=== PATIENT | male | born 1950 | race Caucasian/White ===

== ENCOUNTER 2016-07-30 14:51 | Inpatient (IN) ==
--- NOTE | 2016-07-30 15:27 | Emergency Department Note ---
Disposition Clinical Impression: Angina at rest Chest pain Qualifiers: Chest pain type: unspecified Qualified Code(s): R07.9 - Chest pain, unspecified Disposition: Admitted As Inpatient Condition: Good Chest Pain HPI - General Chief Complaint: ED Shortness of Breath/Dyspnea Stated Complaint: CP/SOB` Time Seen by Provider: 07/30/16 14:56 Source: patient, EMS Limitations: no limitations Vital Signs Reviewed: Yes Nursing Notes Reviewed: Yes - History of Present Illness HPI Narrative: 66-year-old male presents to the ED with the chief complaint of intermittent chest tightness and dyspnea this been worsening over the last 2-3 weeks. He has a history of coronary disease and had an ME in 1997 with a stent placement. In 1998 he had reocclusion and had angioplasty. In 2012 he went to the [facility] where he had 2 stents placed. He states he has significant decrease in energy level and cannot perform his daily activities. He states this is exactly how he felt last time in 2012 when he had 2 additional stents placed. He has a history of high cholesterol and type 2 diabetes. He describes chest tightness that is not radiating. He denies any lower extremity swelling or calf pain. Denies any lightheadedness or syncope. Denies any recent illness. He was seen at the [facility] today with a perform lab work, chest x- ray and sent him here with concerning chest pain. Severity scale (1-10): 0 - Related Data Allergies Allergy/AdvReac Type Severity Reaction Status Date / Time glyburide AdvReac Nausea Verified 07/30/16 14:54 simvastatin [From Zocor] AdvReac Nausea Verified 07/30/16 14:54 All systems ED: reviewed and negative except as stated. Constitutional: Denies: fever Cardiovascular: Reports: chest pain, dyspnea on exertion Respiratory: Denies: cough Gastrointestinal: Denies: abdominal pain, nausea, vomiting Musculoskeletal: Denies: back pain Neurological: Denies: headache, weakness, numbness Endocrine: Reports: fatigue Chest Pain PMH - Past Medical History Medical history: Reports: arthritis, coronary artery disease, diabetes, GERD, hyperlipidemia Psychiatric history: Reports: anxiety, depression, PTSD - Social History Smoking Status: Former smoker Alcohol use: Reports: none Drug use: Reports: none Physical Exam General: Appears well, alert and oriented x 3 Cardiovascular: Regular rate and rhythm. S1, S2. No murmurs, rubs or gallops. Respiratory: Breath sounds clear bilaterally. No wheezing, rales or rhonchi. No resp distress Abdomen: Soft, nontender. No guarding, rebound or rigidity. Eyes: Conjunctiva clear HENT: NNo oral mucosal lesions. Moist mucous membranes Neuro: Alert and oriented 3, no motor sensory deficits. Musculoskeletal: No joint tenderness or swelling. No calf swelling, asymmetry or signs of DVT Skin: No lesions. No diaphoresis. Normal turgor. Normal color Psych: Appropriate - General Limitations: no limitations General appearance: alert Course Course Narrative[facility] 4.8, hemoglobin 13.4, platelets 107. Sodium 139, potassium 3.9, right 105, CO2 25, glucose 141, BUN 8, creatinine 0.93, no elevation in liver enzymes, troponin 0, BNP 67. Chest x-ray shows no evidence of acute cardiopulmonary disease My concern at this time is a patient has a very concerning story consistent with his previous events. His chest pain has worsened significantly over the last 2 weeks causing intermittent chest tightness at rest. Concern for unstable angina. I discussed with the on-call hospitalist, Dr. Adkins who except for admission, no further orders at this time Vital Signs Temperature 98.5 F 07/30/16 14:55 Pulse Rate 57 07/30/16 14:55 Respiratory Rate 16 07/30/16 14:55 Blood Pressure 138/77 07/30/16 14:55 O2 Sat by Pulse Oximetry 99 07/30/16 14:55 Temperature 98.5 F 07/30/16 14:55 Pulse Rate 57 07/30/16 14:55 Respiratory Rate 16 07/30/16 16:11 Blood Pressure 128/72 07/30/16 16:11 O2 Sat by Pulse Oximetry 99 07/30/16 14:55 Oxygen Delivery Oxygen Delivery Room Air Chest Pain - Lab Data Lab results narrative: EKG shows a sinus rhythm with a rate of 55 beats a minute. No ST elevation or depression. T-wave flattening in lead 3. This is unchanged from previous on . Heart Score - Score History: Moderately Suspicious EKG: Normal Age: Greater than 65 Risk Factors: Equal/Greater than 3 risk factor or history of atherosclerotic disease Troponin: Less than normal limit HEART Score Total: 5 Attestation Statement - Attestation Attestation: I examined this patient and my medical decision-making was reviewed with the LAND COMMISSIONER/PA/Advanced Practice Nurse/Resident Physician. I agree with the documented findings, disposition and treatment plan as described except to the extent set forth below. 66-year-old male presents ED because of chest discomfort. He is having progression of increasing fatigue with exertional provocation of dyspnea and chest discomfort. Symptoms mimic what he experienced in 2012 when he required placement of 2 coronary stents at the [facility]. His coronary disease dates back to 1997 when he had his original angioplasties. Denies diaphoresis. No nausea vomiting. No focal weakness. No fevers, chills or rigors. He presented to the [facility] where he had normal lab workup including normal troponin. He was sent to the ED here for further evaluation. Well-appearing male in no apparent physiologic distress. Oropharynx clear, nares membranes moist. Neck is supple without JVD. No carotid bruits appreciated. Chest symmetrically diminished bilaterally. Cardiac exam regular without rubs or gallops. Chest wall is nontender. Abdomen soft and nontender. Extremities warm and dry without asymmetric edema. Case was discussed with on-call hospitalist who will admit him for further cardiac workup.
--- NOTE | 2016-07-30 16:28 | Internal Med History&Physical ---
Date of Encounter: 07/30/16 Time of Encounter: 16:24 Assessment and Plan (1) Chest pain Current visit: Yes Status: Acute Patient with typical chest pain, possibly stable angina , and possible chest pain equivalent of dyspnea on exertion, and chest tightness Initial work up unremarkable-CXR/ekg/Initial trops unremarkable Significant cardiac history Not following with Manager Pet, on ASA only at home Continue ASA Start Lipitor, hold BB for now for stress test Trend troponins X3, Obtain ECHO, Stress test a.m if troponins negative Check A1C lipid profile Will consult cardiology prn Qualifiers: Chest pain type: unspecified Qualified Code(s): R07.9 - Chest pain, unspecified (2) Diabetes mellitus Current visit: Yes Status: Chronic A1C unknown Patient states well controlled Check A1C FS ACHS ADA diet Sliding scale insulin for now, patient is insulin naive Qualifiers: Diabetes mellitus type: type 2 Diabetes mellitus complication status: without complication 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 NO bleeding, monitor PLT (4) HLD (hyperlipidemia) Current visit: Yes Status: Chronic On Niacin at home, Start Lipitor 40mg HS Check Lipid panel and de-escalate prn Qualifiers: Hyperlipidemia type: unspecified Qualified Code(s): E78.5 - Hyperlipidemia , unspecified (5) CAD (coronary artery disease) Current visit: Yes Status: Chronic Patient is not on any medications at home except aspirin, continue same Qualifiers: Coronary Disease-Associated Artery/Lesion type: [place] artery [place] vs. transplanted heart: [place] heart Associated angina: with other forms of angina Qualified Code(s): I25.118 - Atherosclerotic heart disease of [place] coronary artery with other forms of angina pectoris Internal Medicine - H&P: HPI Chief complaint: Chest tightness Admitted From: Intrahospital Transfer Plans for Post Hospital Care: Home History of present illness: Mr. Eric is a 66 year old male with PMH of CAD, HLD, DM, GERD, BPH, ED on [facility], patient presented as a transfer from the [place] with complains of chest tightness Patient reports intermittent chest tightness for the past 3 weeks with worsening in the past 2 days. 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 He reports he started having sub -sternal dull chest pain , ~4/10, intermittent with no known aggravating and relieving factors for the past 2 days. Pain occasionally radiating to L arm, and lasts a few seconds per episode. No active chest pain at time of review. Chest pain is unrelated to meals. He reports feeling light headed , denies dizziness, diaphoresis, nausea, and vomiting, no syncope, no orthopnea, no leg swelling He has a history of coronary disease with HI in 1997 with a stent placement. In 1998 he had re-occlusion and had angioplasty. In 2012 agian, he hasd HI with SEGUNDO X2. He has not been on any "hear medication for years", he does not currently see a credit cashier. Patient thinks this is the same way he felt during last episode of NSTEMI He presented to the [facility] where he was worked up and referred here for further work up and management. He received SL NTG and ASA in [place], his BP has been stable (Patient is on Viagra) He is a non-smoker Past Med Surg Social Fam HX - Past Medical History Medical history: arthritis, coronary artery disease, diabetes, GERD, hyperlipidemia Psychiatric history: anxiety, depression, PTSD - Social History Smoking Status: Former smoker Smokeless Tobacco Status: No Alcohol use: none Drug use: none Internal Medicine - H&P: Meds Aspirin Enteric Coated [Aspirin EC] 81 mg PO DAILY 07/30/16 [History] Citalopram Hydrobromide [Celexa] 40 mg PO DAILY 07/30/16 [History] Finasteride [Proscar] 5 mg PO DAILY 07/30/16 [History] Metformin HCl [Glucophage] 1,000 mg PO BID 07/30/16 [History] Niacin [Slo-Niacin] 1,500 mg PO HS 07/30/16 [History] Pantoprazole Sodium [Protonix] 40 mg PO DAILY 07/30/16 [History] Saxagliptin HCl [Onglyza] 5 mg PO DAILY 07/30/16 [History] Sildenafil Citrate [Viagra] 100 mg PO AD PRN 07/30/16 [History] Terazosin HCl 2 mg PO HS 07/30/16 [History] Allergies glyburide Adverse Reaction (Verified 07/30/16 14:54) Nausea simvastatin [From Zocor] Adverse Reaction (Verified 07/30/16 14:54) Nausea All Systems PM: A 10-system review of systems was performed and is negative for pertinent findings except as documented above in the HPI. - Constitutional Constitutional: no chills, no fever(s), no night sweats - EENT Eyes: no change in vision, no discharge, no pain, no photophobia Ears: no ear discharge, no ear pain, no tinnitus Nose, mouth and throat: no dysphagia, no nasal discharge, no neck pain, no sore throat - Cardiovascular Cardiovascular ROS IM: as per HPI - Respiratory Respiratory: as per HPI - Gastrointestinal Gastrointestinal: as per HPI - Musculoskeletal Musculoskeletal ROS IM: as per HPI - Integumentary Integumentary IM: no rash, no unusual bruising - Neurological Neurological ROS: no confusion, no convulsions, no focal weakness, no numbness, no tingling, no tremor(s) - Hematologic/Lymphatic Hematologic/Lymphatic: no easy bruising - Constitutional Vitals: Temp Pulse Resp BP Pulse Ox 98.5 F 57 16 128/72 99 07/30/16 14:55 07/30/16 14:55 07/30/16 16:11 07/30/16 16:11 07/30/16 14:55 General: VSS. Laying flat in bed in no obvious distress, speaks full sentences, appears well, alert and oriented x 3 Neuro: Alert, oriented, moves all extremities, no speech deficits, no facial paralysis HEENT: BEKA, sclera anicteric, conjunctiva is not pale Chest: CTAB, no added sound, no chest wall tenderness Heart: S1, S2 only, no m/g/r, no JVD Abdomen: Soft, non-tender. No palpably enlarged organs, BS present in all quadrants Extremities: No edema, well perfused, no clubbing Integument: Intact, no rash on chest wall Internal Med - H&P Results - Labs Labs: Paperwork from [place] reviewed WBC 4.8, hemoglobin 13.4, platelets 107-chronic, since 2016, baseline PLT about 107. Chem:. Sodium 139, potassium 3.9, right 105, CO2 25, glucose 141, BUN 8, creatinine 0.93, LFT WNL Troponin 0.00 BNP 67 CXR: No infiltrates, no cardiomegaly, no acute processed EKG at [facility]: NSR, no ST segment changes EKG here: Sinus bradycardia, VR 55, no St elevation or depression, no T wave inversion or flattening
[2016-07-30] MEDS ORDERED: *HR* HYDROcodone/Acet 5/325 mg TABLET PO PRN (16:30)
[2016-07-30] MEDS ORDERED: Naloxone 0.4 MG/ML INJ IVP PRN (16:30)
[2016-07-30] MEDS ORDERED: *HR* Morphine 2 MG/ML SYRINGE IVP PRN (16:30)
[2016-07-30] MEDS ORDERED: Ondansetron 4 MG/2 ML VIAL IVP PRN (16:30)
[2016-07-30] MEDS ORDERED: Acetaminophen 325 MG TABLET PO PRN (16:30)
[2016-07-30] MEDS ORDERED: Nitroglycerin 0.4 MG TAB.SUBL SL PRN (16:35)
[2016-07-30] MEDS ORDERED: *HR* Dextrose 50 % in Water (Syg) 50 ML SYRINGE IVP PRN (16:36)
[2016-07-30] MEDS ORDERED: D5% in Water 1,000 ML IVC PRN (16:36)
[2016-07-30] MEDS ORDERED: Dextrose Gel 15 GM PO PRN ×2 (16:36)
[2016-07-30] MEDS ORDERED: Insulin LISPRO 300 UNITS/3 ML VIAL SQ SCH (21:00)
[2016-07-31] MEDS: *HR* Heparin 5,000 UNIT/ML VIAL SQ SCH ×3 (00:04→16:40)
[2016-07-31 00:47] LABS: Basophils % 0.7 %; Eosinophils # 0.1 K/mcL (0.0-0.6); Hematocrit 39.2 % (37.5-50.1); Hemoglobin 13.3 g/dL (12.9-16.9); Immature Granulocytes % 0.4 % (0-4); Lymphocytes % 36.2 %; Mean Corpuscular HGB Conc 33.9 g/dL (31.6-35.5); Mean Corpuscular Hemoglobin 29.8 pg (28.0-33.3); Mean Corpuscular Volume 87.7 fL (83.0-100.0); Mean Platelet Volume 10.4 fL (9.4-12.4); Monocytes # 0.6 K/mcL (0.0-1.3); Monocytes % 10.2 %; Neutrophils # 2.8 K/mcL (1.6-8.9); Platelet Count 109 K/mcL (140-400); Red Blood Count 4.47 M/mcL (4.19-5.50); Red Cell Distribution Width 12.2 % (11.5-14.5); Segmented Neutrophils % 50.5 %
[2016-07-31 01:01] LABS: BUN/Creatinine Ratio 11 (6-26); Blood Urea Nitrogen 10 mg/dL (8-26); Carbon Dioxide 27 mEq/L (19-29); Chloride 105 mEq/L (98-109); Chol/HDL Ratio 4.6 (0-4.9); Cholesterol 193 mg/dL (< 200); Glucose 121 mg/dL (70-99); HDL Cholesterol 42 mg/dL (40-59); Hemoglobin A1C 7.7 %; LDL Cholesterol,Calculated 116 mg/dL (0-99); Osmolality,Calculated 286 (280-300); Potassium 3.6 mEq/L (3.5-4.5); Sodium 138 mEq/L (136-145); Triglycerides 175 mg/dL (< 150); eGFR For African Americans > 60 (> 60); eGFR For Non-African Americans > 60 (> 60)
[2016-07-31] MEDS ORDERED: Regadenoson 0.4 MG/5 ML SYRINGE IVP ONE (07:27)
[2016-07-31] MEDS ORDERED: Aspirin Enteric Coated 81 MG Tablet PO SCH (09:00)
[2016-07-31] MEDS ORDERED: Finasteride 5 MG TABLET PO SCH (09:00)
[2016-07-31] MEDS: Insulin LISPRO 300 UNITS/3 ML VIAL SQ SCH ×3 (09:56→16:40)
--- NOTE | 2016-07-31 11:53 | Nuclear Medicine Stress Report ---
Low Level Regadenoson Name: Sarbjit Eric Date of Study: 07/31/2016 Date: 1950 Ht: 70.0 in Medical Record#: [id number] Age: 66 Wt: 197.0 lb Gender: Male Order #: [id number] Location: [facility] Room: [facility] Supervising Provider: Joao Hartman CNP Reading Physician: Steve Darling MD, [facility] Ordering Physician: Olga Basurto CNP Primary Care Physician: [facility] Stress Technologist: Chetna Bautista RRT,FT Pasting Inspector: Rao Figueroa Indications: Coronary Artery Disease, Chest Pain Impression: Perfusion imaging was probably abnormal for ischemia - small area, mildly intense reversible defect in the mid-apical inferior wall (SDS 3). This was complicated by subdiaphragmatic attenuation. Pharmacologic ECG was non diagnostic for ischemia. Patient had no chest pain with stress. Normal hemodynamic response. No arrhythmias noted with stress. Gated EF = 62%. The LV is not dilated. There is no evidence of TID. No high risk findings on this stress test Ordering team and eco industrial development consultant notified of abnormal results History: Diabetes Hypercholesteremia Prior PCI Stress Test Summary: Stress Test Type: Low level pharmacologic Regadenoson 0.4mg/5ml given IV Baseline Information: Initial Heart Rate: 85 Blood Pressure: 104/62 Stress Information: Stress Time: 4 min 00 sec Test Terminated Due to (primary): As per protocol Maximum Blood Pressure: 122/52 Maximum Heart Rate: 133 Percent Maximum Heart Rate Achieved: 86 Double Product: 50902 METS Reached: 2.1 Symptoms: Shortness of breath Nuclear Summary: SPECT myocardial perfusion imaging using Tc99m Sestamibi given intravenously was performed at rest and following cardiac stress testing. The resting images were obtained following initial dose of 11.5 mCi. Following stress an additional dose of 35.6 mCi was given at peak exercise or 30 seconds post regadenoson infusion. Medication Given: Time Medication Dose Units Route Findings: Stress Note * Resting ECG demonstrated normal sinus rhythm. * No baseline arrhythmias were noted. * Pharmacologic stress ECG is non diagnostic for ischemia due to failure to reach target heartrate. Hemodynamic responses * Normal hemodynamic responses to low level exercise plus pharmacologic stress. Study Quality * Study quality was fair. Gated EF % * Gated EF = 62%. Left Ventricle * The left ventricle is not dilated. TID * No evidence of transient ischemic dilatation. NORMALS * Normal wall motion. * All other segmental perfusion normal in stress. * All other segmental perfusion normal in rest. Inferior Perfusion Rest * The mid inferior segment shows a mild reduction in perfusion. Inferior Perfusion Stress * The mid inferior segment shows a moderate reduction in perfusion. Updated by Steve Darling MD, FACC on 07/31/2016 11:45:16 AM electronically signed on 07/31/2016 11:49:50 AM with status of Final
--- NOTE | 2016-07-31 12:57 | Cardiology Consult Note ---
Date of Encounter: 07/31/16 Time of Encounter: 12:30 Assessment and Plan (1) Abnormal stress test Current Visit: Yes Status: Acute Presented to the [facility] from OR with typical/atypical chest pain symptoms. Troponin negative x3 (negative at OR). No ischemic ECG changes. Denies recurrent chest pain since admission. Low risk finding on nuclear stress test today--small area, mild intensity reversible defect to the mid-apical inferior wall, gated EF=62% TTE: LVEF 60-65%, normal wall motion. Cardiac medications include asa and niacin. Recommend trial of medical therapy-- will start betablocker and long-acting nitrate. He was instructed to stop sildenafil--he states he has not taken for "years" Close follow-up with [facility] in the outpatient setting to assess symptoms. Patient is agreeable. (2) CAD (coronary artery disease) Current Visit: Yes Status: Chronic Hx of angioplasty in the late . Reported most recent PCI September 2012 to RCA. Plan as above. Continue asa, will start betablocker. Intolerant to statin d/t myalgia. Qualifiers: Coronary Disease-Associated Artery/Lesion type: [place] artery [place] vs. transplanted heart: [place] heart Associated angina: with stable angina Qualified Code(s): I25.118 - Atherosclerotic heart disease of [place] coronary artery with other forms of angina pectoris (3) Thrombocytopenia Current Visit: Yes Status: Chronic Reports as chronic for the past several years. PLT stable. Denies abnormal or unusual bleeding. Discussion w patient/family: The assessment and plan as outlined above was discussed with the patient and/or family members who expressed understanding and agreement. All questions were answered. Thank you for involving us in the care of your patient. Please call with any questions. The patient will be discussed and reviewed with Dr. Rice; changes to be made accordingly. History of Present Illness Consult date: 07/31/16 Requesting physician: Max Prince Consult reason: Abnormal stress test Chief complaint: Chest pain History of present illness: Mr. Eric is a 66 year old male with PMH significant for CAD s/p PCI, GERD, OA, HLD, DMII, and chronic thrombocytopenia who presented to the ED with intermittent chest discomfort that started a few weeks ago. Symptoms occur both at rest and exertion. Associated features include fatigue and shortness of breath. Discomfort typically resolves without intervention. [facility] ECG was without acute ischemic changes. Reports angioplasty in 1997 and 1998; reports PCI at [facility] in 2013. Cath report reviewed 10/21/12: LMCA: no significant CAD LAD: p30% stenosis LCx: luminal irregularities RCA: patent stent with 40% ISR; RPL 100% functional [employer]KE [employer] with left to right collateral appears from septal branches of the LAD Past Med Surg Social Fam HX - Past Medical History Attestation: Yes The following information was validated with the patient. Source: patient, old records reviewed Medical history: arthritis, coronary artery disease, diabetes, GERD, hyperlipidemia, other (chronic thrombocytopenia) Psychiatric history: anxiety, depression, PTSD - Past Surgical History Surgical History: angioplasty/stent - Social History Smoking Status: Former smoker Smokeless Tobacco Status: No Alcohol use: none Drug use: none - Family History Mother Living Status: Hx Family Endocrine Disorder: Yes (DM) Hx Family Neuromuscular Disorders: Yes Father Living Status: Hx Family Cardiac Disorders: Yes (HLD, HTN) Hx Family Neurologic Disorders: Yes (aneurysm) Medications and Allergies Aspirin Enteric Coated [Aspirin EC] 81 mg PO DAILY 07/30/16 [History] Citalopram Hydrobromide [Celexa] 40 mg PO DAILY 07/30/16 [History] Finasteride [Proscar] 5 mg PO DAILY 07/30/16 [History] Metformin HCl [Glucophage] 1,000 mg PO BID 07/30/16 [History] Niacin [Slo-Niacin] 1,500 mg PO HS 07/30/16 [History] Pantoprazole Sodium [Protonix] 40 mg PO DAILY 07/30/16 [History] Saxagliptin HCl [Onglyza] 5 mg PO DAILY 07/30/16 [History] Sildenafil Citrate [Viagra] 100 mg PO AD PRN 07/30/16 [History] Tamsulosin [Flomax] 0.4 mg PO HS 07/30/16 [History] Allergies glyburide Adverse Reaction (Verified 07/30/16 14:54) Nausea simvastatin [From Zocor] Adverse Reaction (Verified 07/30/16 14:54) Nausea All Systems Review: A 10-system review of systems was performed and is negative for pertinent findings except as documented above in the HPI. - Cardiovascular Cardiovascular: as per HPI Physical Examination Vital Signs, Last 4 Hours Temp Pulse Resp BP Pulse Ox 07/31/16 11:34 98.0 F 66 17 118/72 98 07/31/16 09:55 97 07/31/16 09:53 98.1 F 57 16 106/64 97 General: Conversant, No Apparent Distress HEENT: Atraumatic, Normocephaly, Mucus Membranes Moist Neck: No JVD, Normal carotid pulses Cardiac: Reg Rate and Rhythm, Normal S1 and S2, No Murmur Lungs: Normal Breath Sounds, No Wheeze, Rales, Rhonchi Neuro: Alert and responsive, No focal deficits noted Abdomen: Soft, Non-Tender Skin: No rashes noted on visualized skin Musculoskeletal: No Chest Wall Tenderness Extremities: No Clubbing, No Cyanosis, No Edema, Normal Pulses Results 07/31/16 00:14 07/31/16 00:14 Lab Results 07/31/16 07/31/16 07/31/16 00:14 00:14 00:14 WBC 5.6 Hgb 13.3 Hct 39.2 Plt Count 109 L Sodium 138 Potassium 3.6 Chloride 105 Carbon Dioxide 27 BUN 10 Creatinine 0.88 Glucose 121 H Calcium 9.0 Troponin I 0.00 07/31/16 04:33 WBC Hgb Hct Plt Count Sodium Potassium Chloride Carbon Dioxide BUN Creatinine Glucose Calcium Troponin I 0.01 Active Medications Acetaminophen (Tylenol) 650 mg PO Q6HR PRN PRN Reason: Mild Pain (1-3) Stop: 01/29/17 16:31 Acetaminophen/Hydrocodone Bitart ([place] 5-325 Mg) 1 tab PO Q4HR PRN PRN Reason: Moderate Pain (4-6) Stop: 01/29/17 16:31 Aspirin (Aspirin Ec) 81 mg PO DAILY [facility] Stop: 01/30/17 09:01 Last Admin: 07/31/16 09:55 Dose: 81 mg Atorvastatin Calcium (Lipitor) 40 mg PO HS [facility] Stop: 01/29/17 21:01 Last Admin: 07/30/16 21:09 Dose: Not Given Citalopram Hydrobromide (Celexa) 40 mg PO DAILY [facility] Stop: 01/30/17 09:01 Last Admin: 07/31/16 09:55 Dose: 40 mg Dextrose/Water (Dextrose 50% (Syg)) 25 ml IVP AD PRN PRN Reason: Hypoglycemia Stop: 01/29/17 16:37 Finasteride (Proscar) 5 mg PO DAILY JANNIE PRN Reason: Protocol Stop: 01/30/17 09:01 Last Admin: 07/31/16 09:55 Dose: 5 mg Glucagon (Glucagen) 1 mg IM ONCE PRN PRN Reason: Hypoglycemia Stop: 01/29/17 16:37 Glucose (Gluctose) 15 gm PO ONCE PRN PRN Reason: Hypoglycemia Stop: 01/29/17 16:37 Glucose (Gluctose) 30 gm PO ONCE PRN PRN Reason: Hypoglycemia Stop: 01/29/17 16:37 Heparin Sodium (Porcine) (Heparin) 5,000 unit SQ Q8HR [facility] Stop: 01/30/17 00:01 Last Admin: 07/31/16 09:56 Dose: 5,000 unit Dextrose (Dextrose 5%) 1,000 mls @ 100 mls/hr IVC .Q10H PRN PRN Reason: HYPOGLYCEMIA Stop: 01/29/17 16:37 Insulin Human Lispro (Humalog) 0 units SQ HS [facility] PRN Reason: Protocol Stop: 01/29/17 21:01 Last Admin: 07/30/16 21:09 Dose: 3 units Insulin Human Lispro (Humalog) 0 units SQ TIDAC [facility] PRN Reason: Protocol Stop: 01/30/17 07:31 Last Admin: 07/31/16 12:22 Dose: Not Given Isosorbide Mononitrate (Imdur) 30 mg PO DAILY [facility] Stop: 01/30/17 13:01 Metoprolol Succinate (Toprol Xl) 12.5 mg PO DAILY [facility] Stop: 01/30/17 13:01 Morphine Sulfate (Morphine Sulfate) 2 mg IVP Q4HR PRN PRN Reason: Severe Pain (7-10) Stop: 01/29/17 16:31 Naloxone HCl (Narcan) 0.4 mg IVP Q2MIN PRN PRN Reason: Opioid Reversal Stop: 01/29/17 16:31 Nitroglycerin (Nitroglycerin) 0.4 mg SL Q5MIN PRN PRN Reason: Chest Pain Stop: 01/29/17 16:36 Omeprazole (Prilosec) 20 mg PO DAILY [facility] Stop: 01/30/17 09:01 Last Admin: 07/31/16 09:55 Dose: 20 mg Ondansetron HCl (Zofran) 4 mg IVP Q8HR PRN PRN Reason: Nausea And Vomiting Stop: 01/29/17 16:31 Tamsulosin HCl (Flomax) 0.4 mg PO HS JANNIE PRN Reason: Protocol Stop: 01/29/17 21:46 Last Admin: 07/30/16 22:01 Dose: 0.4 mg Terazosin HCl (Hytrin) 2 mg PO HS JANNIE Stop: 01/29/17 21:01 Last Admin: 07/30/16 21:10 Dose: Not Given - Imaging and Cardiology Stress Test: report reviewed Echo: report reviewed Other Results: 12 hour tele: avg HR=63 SR. No significant pause or event. - EKG Interpretation EKG results cardiology: personally reviewed Consult Discharge Plan - Plan [facility]errals: [facility] [Primary Care Provider] -
[2016-07-31] MEDS ORDERED: Metoprolol XL (24 HR) Succ 25 MG TAB.ER.24H PO SCH (13:00)
[2016-07-31] MEDS ORDERED: Isosorbide MONOnitrate (24 HR) 30 MG TAB.ER.24H PO SCH (13:00)
[2016-07-31 15:22] VITALS: BP 93/49
--- NOTE | 2016-07-31 16:00 | Discharge Summary ---
Date of Encounter: 07/31/16 Time of Encounter: 12:00 - Discharge Diagnosis (1) Chest pain Priority: Primary Status: Acute Qualifiers: Chest pain type: unspecified Qualified Code(s): R07.9 - Chest pain, unspecified (2) Diabetes mellitus Priority: Secondary Status: Chronic Qualifiers: Diabetes mellitus type: type 2 Diabetes mellitus complication status: without complication Diabetes mellitus half-way insulin use: without terminal make up operator use Qualified Code(s): E11.9 - Type 2 diabetes mellitus without complications (3) Thrombocytopenia Priority: Secondary Status: Chronic (4) HLD (hyperlipidemia) Priority: Secondary Status: Chronic Qualifiers: Hyperlipidemia type: unspecified Qualified Code(s): E78.5 - Hyperlipidemia , unspecified (5) CAD (coronary artery disease) Priority: Secondary Status: Chronic Qualifiers: Coronary Disease-Associated Artery/Lesion type: [place] artery [place] vs. transplanted heart: [place] heart Associated angina: with stable angina Qualified Code(s): I25.118 - Atherosclerotic heart disease of [place] coronary artery with other forms of angina pectoris - Discharge Medications Prescriptions: Isosorbide MONOnitrate (24 HR) [Imdur] 30 mg PO DAILY #30 tab.er.24h Metoprolol XL (24 HR) Succ [Toprol Xl] 12.5 mg PO DAILY #30 tab.er.24h Home Medications: Aspirin Enteric Coated [Aspirin EC] 81 mg PO DAILY 07/30/16 [History] Citalopram Hydrobromide [Celexa] 40 mg PO DAILY 07/30/16 [History] Finasteride [Proscar] 5 mg PO DAILY 07/30/16 [History] Metformin HCl [Glucophage] 1,000 mg PO BID 07/30/16 [History] Niacin [Slo-Niacin] 1,500 mg PO HS 07/30/16 [History] Pantoprazole Sodium [Protonix] 40 mg PO DAILY 07/30/16 [History] Saxagliptin HCl [Onglyza] 5 mg PO DAILY 07/30/16 [History] Tamsulosin [Flomax] 0.4 mg PO HS 07/30/16 [History] Isosorbide MONOnitrate (24 HR) [Imdur] 30 mg PO DAILY #30 tab.er.24h 07/31/16 [ Rx] Metoprolol XL (24 HR) Succ [Toprol Xl] 12.5 mg PO DAILY #30 tab.er.24h 07/31/16 [Rx] Allergies/Adverse Reactions: Allergies glyburide Adverse Reaction (Verified 07/30/16 14:54) Nausea simvastatin [From Zocor] Adverse Reaction (Verified 07/30/16 14:54) Nausea Procedures/tests Complete & Pending: Procedures Performed prior 72 hours Category Date Time Status ECG 12 lead ECG [ECG] Routine Y 07/30/16 14:55 Completed Date of admission: 07/30/16 17:30 [facility] care physician: [facility] Consults: 07/31/16 11:54 Consult to Cardiology [CONS] Stat Comment: Consulting Provider: Cardiology [facility] Reason for Consult: Significant cardiac history, chest pain, abnromal stress test, negative EKG/ECHO/Troponin X3, Kindly evaluate Call Completed: Yes Discharging clinician: Max Prince Anticipated date of discharge: 07/31/16 - Patient Status Disposition: Home, Self-Care Condition: Good Functional capacity at discharge: independent ambulation Overall status at discharge: patient is back to baseline - Discharge Instructions Instructions: Chest Pain (DC), Diabetes Mellitus Type 2 in Adults (DC) Follow Up With: [facility] [Primary Care Provider] - Additional Instructions: FOLLOW UP WITH CARDIOLOGY - Diet and Activity Activity: resume usual activities as tolerated Diet: low fat, low cholesterol, low salt diet Interval History: See below Hospital course: Mr. Eric is a 66 year old male with past medical history of coronary artery disease with stents, diabetes mellitus, hyperlipidemia, Patient presented with chest pain initial troponin negative 3, EKG unremarkable for ischemic changes, echocardiogram with normal ejection fraction and no wall motion abnormalities, stress test with mild perfusion defect inferior wall. Cardiology was consulted for evaluation due to abnormal stress test. Patient opted for medical therapy. Patient remained chest pain-free and hemodynamically stable throughout admission. Patient has been started on beta blockers and Imdur by cardiology. Patient was educated about his medications, verbalizes understanding. Patient takes Viagra for erectile dysfunction, however he states that he has not taken it in almost a year, and has been educated not to take it along with nitrates. Plan of care was discussed patient verbalizes understanding. Follow up with primary care provider and cardiology as outpatient. - Time Spent with Patient Total time spent providing and/or coordinating discharge services: Greater than 30 minutes - Constitutional Vitals: Temp Pulse Resp BP Pulse Ox 98.6 F 67 16 93/49 97 07/31/16 15:21 07/31/16 15:21 07/31/16 15:21 07/31/16 15:21 07/31/16 15:21 General appearance: Present: A&O X 3, pleasant, no acute distress - Head Head exam: Present: atraumatic, normocephalic - Eye Eye exam: Present: PERRL, conjuntiva pink, sclera anicteric Pupils: Present: PERRL - Neck Neck exam general surgery: Present: supple, trachea midline. Absent: lymphadenopathy - Respiratory Respiratory exam: Present: CTAB. Absent: accessory muscle use, rales, rhonchi, wheezes - Cardiovascular Cardiovascular exam: Present: RRR, +S1, +S2. Absent: diastolic murmur, gallop, rubs, systolic murmur - GI/Abdominal GI/Abdominal exam: Present: normal bowel sounds, soft, no peritoneal signs. Absent: distended, tenderness - Extremities Exam Extremities exam: Present: warm, radial pulses palpable and symetrical. Absent : calf tenderness, cyanotic, pedal edema - Neurological Exam Neurological exam: Present: alert, CN II-XII intact, oriented X3, no focal deficits. Absent: pronater drift, facial droop, speech deficit - Skin Skin exam: Present: dry, intact
--- NOTE | 2016-07-31 20:17 | Electrocardiograph Report ---
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
== END 2016-07-31 16:51 | disposition home or self-care (01) | DRG 303 ==
LOC: 3BNU 14:51 → EMEROO 14:51 → 3BNU 16:32 → SUATTDRO 17:30
PROVIDERS: ADMIT Internal Medicine Endocrinology, Diabetes & Metabolism; ATTEND Internal Medicine

== ENCOUNTER 2018-11-20 19:23 | Observation (INO) ==
[2018-11-20 20:06] LABS: Basophils # 0.1 K/mcL (0.0-0.2); Basophils % 1.3 %; Eosinophils % 0.2 %; Hematocrit 40.8 % (37.5-50.1); Hemoglobin 13.8 g/dL (12.9-16.9); Immature Granulocytes % 0.2 % (0-4); Lymphocytes # 1.8 K/mcL (0.6-4.6); Lymphocytes % 28.8 %; Mean Corpuscular HGB Conc 33.8 g/dL (31.6-35.5); Mean Corpuscular Hemoglobin 30.8 pg (28.0-33.3); Mean Corpuscular Volume 91.1 fL (83.0-100.0); Mean Platelet Volume 10.4 fL (9.4-12.4); Monocytes # 0.5 K/mcL (0.0-1.3); Monocytes % 8.5 %; Neutrophils # 3.7 K/mcL (1.6-8.9); Platelet Count 149 K/mcL (140-400); Red Blood Count 4.48 M/mcL (4.19-5.50); Red Cell Distribution Width 12.3 % (11.5-14.5); White Blood Count 6.1 K/mcL (4.3-11.1)
[2018-11-20 20:13] LABS: Prothrombin Time 11.3 Seconds (9.4-12.1)
--- NOTE | 2018-11-20 20:14 | Emergency Department Note ---
Disposition Clinical Impression: Light-headed, Unstable angina Disposition: Admitted As Inpatient Condition: Good Time of Disposition: 22:35 General Adult HPI - General Chief complaint: ED Dizziness Stated complaint: Dizzy Time Seen by Provider: 11/20/18 19:28 Source: patient Mode of arrival: private vehicle Limitations: no limitations Nursing Notes Reviewed: Yes Vital Signs Reviewed: Yes - History of Present Illness HPI Narrative: 68M with hx of CAD, multiple stents, multiple IN, and carotid stenosis of unknown side that reports transient dizziness twice today, with the last episode starting around 1730 this evening and still going on now. Pt reports that he was eating when it started, denies any recent URI symptoms. He reports associated nausea, SOB. He also reports a headache behind his eyes that he has had for a while, but cannot state how long. When asked if it is "days, weeks, or months" he says "yes, a long time." Pt denies any chest pain at this time. He denies any recent falls. He denies any head trauma. He initially tried to go to the [place] where all [place] doctors are, but they were closed when he arrived. Pain Scale: 8 - Related Data Home Medications Medication Instructions Recorded Confirmed Aspirin Enteric Coated [Aspirin EC] 81 mg PO DAILY 07/30/16 11/20/18 Metformin HCl [Glucophage] 1,000 mg PO BID 07/30/16 11/20/18 Niacin [Slo-Niacin] 1,500 mg PO HS 07/30/16 11/20/18 Previous Rx's Medication Instructions Recorded Metoprolol XL (24 HR) Succ [Toprol 12.5 mg PO DAILY #30 tab.er.24h 07/31/16 Xl] Allergies Allergy/AdvReac Type Severity Reaction Status Date / Time glyburide AdvReac Nausea Verified 11/20/18 19:25 simvastatin [From Zocor] AdvReac Nausea Verified 11/20/18 19:25 Review of Systems: In addition to that documented in the HPI above, the additional ROS was obtained: Constitutional: Denies fevers or chills Eyes: Denies vision changes ENMT: Denies sore throat CV: Denies chest pain Resp: Reports SOB GI: Denies vomiting or diarrhea Reports nausea : Denies painful urination MSK: Denies recent trauma or falls Skin: Denies new rashes Neuro: Denies new numbness or tingling or weakness Reports chronic headache and new sudden onset dizziness Endocrine: Denies unexpected weight loss Reports purposeful weight loss over the last year by cutting back Heme: Denies bleeding disorders Past Medical History - Past Medical History Attestation: Yes The following information was validated with the patient. Medical history: Reports: arthritis, coronary artery disease, diabetes, GERD, h yperlipidemia, myocardial infarction, other Surgical history: Reports: angioplasty/stent Psychiatric history: Reports: anxiety, depression, PTSD - Social History Smoking Status: Former smoker Smokeless Tobacco Status: No Alcohol use: Reports: none Drug use: Reports: none Physical Exam General: A&O x 3. No acute distress. Appears uncomfortable and is resting with eyes closed, but will open them if asked. Well developed, well nourished. Head: atraumatic, normocephalic. ENT: No conjunctival injection, no scleral icterus. PERRLA. EOMI. Oropharynx non- erythematous. mucous membranes moist. Neuro: No focal deficits, no speech deficit, no facial droop, mentating well. BUE/BLE Str 5/5. Matthias UE/LE sensation intact. CN II-XII intact. Cerebellar testing with [id number] and yrmu-lj-[id number] intact. Pulm: Lungs CTAB A/P. No wheezes, rales, ronchi. Cardio: RRR no m/r/g. Chest not tender to palpation. Abd: Soft, non-distended. Normoactive bowel sounds. Non-tender to palpation. No guarding. Non rigid. Extremities: Radial pulses 2+ matthias, dorsalis pedis/posterior tibialis 2+ matthias. No LE edema. No cyanosis, clubbing. Skin: warm, dry, intact. No rashes. Psych: Appropriate mood and affect. Answers questions appropriately. Cooperative with exam. - General Limitations: no limitations General appearance: alert, in no apparent distress Course Vital Signs Temperature 98.1 F 11/20/18 19:25 Pulse Rate 89 11/20/18 19:25 Respiratory Rate 20 11/20/18 19:25 Blood Pressure 141/76 11/20/18 19:25 O2 Sat by Pulse Oximetry 98 11/20/18 19:25 Temperature 97.5 F L 11/21/18 00:00 Pulse Rate 63 11/21/18 00:00 Respiratory Rate 14 11/21/18 00:00 Blood Pressure 125/73 11/21/18 00:00 O2 Sat by Pulse Oximetry 97 11/21/18 00:00 Oxygen Delivery Oxygen Delivery Room Air Medical Decision Making - [facility] Narrative Medical decision making narrative: 68M with DM, cardiac hx, that reports dizziness that had been transient today and then started again at 1730 and has been ongoing and associated with headache and nausea. Will obtain Head CT, CBC, BMP, LFTs, UA, EKG, troponin. Patient's head CT did not reveal any acute intracranial abnormalities. Lab work was unremarkable. However given the patient's age and history of cardiac disease it was felt that he could benefit from further inpatient workup and neurologic referral. Patient was admitted to the hospitalist, Dr Coelho, who agreed to take the patient to his service. Patient was stable at the time of disposition. Results of the workup including any imaging and/or labwork was shared with the patient at bedside. Patient was given an opportunity to ask questions at bedside and all of their concerns were addressed. Patient verbalized understanding and agreement with plan of care. Pt remained stable while in the department. - Medical Records Medical records reviewed: Yes I reviewed the patient's medical records. - Lab Data Lab results reviewed: Yes I reviewed the patient's lab results. Result diagrams: 11/20/18 19:45 11/20/18 19:45 Lab Results 11/20/18 11/20/18 11/20/18 Range/Units 19:45 19:45 19:45 WBC 6.1 (4.3-11.1) K/mcL RBC 4.48 (4.19-5.50) M/mcL Hgb 13.8 (12.9-16.9) g/dL Hct 40.8 (37.5-50.1) % MCV 91.1 (83.0-100.0) fL MCH 30.8 (28.0-33.3) pg MCHC 33.8 (31.6-35.5) g/dL RDW 12.3 (11.5-14.5) % Plt Count 149 (140-400) K/mcL MPV 10.4 (9.4-12.4) fL Immature Gran % 0.2 (0-4) % Seg Neutrophils % 61.0 % Lymphocytes % 28.8 % Monocytes % 8.5 % Eosinophils % 0.2 % Basophils % 1.3 % Neutrophils # 3.7 (1.6-8.9) K/mcL Lymphocytes # 1.8 (0.6-4.6) K/mcL Monocytes # 0.5 (0.0-1.3) K/mcL Eosinophils # 0.0 (0.0-0.6) K/mcL Basophils # 0.1 (0.0-0.2) K/mcL PT 11.3 (9.4-12.1) Seconds INR 1.0 Sodium 136 (136-145) mEq/L Potassium 4.2 (3.5-5.1) mEq/L Chloride 101 (98-107) mEq/L Carbon Dioxide 26 (23-29) mEq/L BUN 15 (8-23) mg/dL Creatinine 1.03 (0.70-1.30) mg/dL Est GFR ( Amer) > 60 (> 60) Est GFR (Non-Af Amer) > 60 (> 60) BUN/Creatinine Ratio 15 (6-26) Glucose 233 H (70-105) mg/dL Calculated Osmolality 290 (280-300) Calcium 9.5 (8.6-10.3) mg/dL Troponin I < 0.03 (< 0.04) ng/mL - Radiology Data Radiology results reviewed: Yes I reviewed the patient's radiology results. Head CT 11/20/18 21:29 IMPRESSION: No acute intracranial abnormality. Status post previous left mastoidectomy. D/ /20/2018 21:38:11 Khris Rosen MD / bcarter Interpreting Provider: Khris Rosen MD
[2018-11-20 20:19] LABS: BUN/Creatinine Ratio 15 (6-26); Blood Urea Nitrogen 15 mg/dL (8-23); Calcium 9.5 mg/dL (8.6-10.3); Carbon Dioxide 26 mEq/L (23-29); Chloride 101 mEq/L (98-107); Glucose 233 mg/dL (70-105); Osmolality,Calculated 290 (280-300); Potassium 4.2 mEq/L (3.5-5.1); Sodium 136 mEq/L (136-145); eGFR For African Americans > 60 (> 60); eGFR For Non-African Americans > 60 (> 60)
[2018-11-20 20:20] LABS: Troponin I < 0.03 ng/mL (< 0.04)
[2018-11-20] MEDS ORDERED: Aspirin 325 MG TABLET PO ONE (22:24)
--- NOTE | 2018-11-20 22:35 | Emergency Department Note ---
Disposition Clinical Impression: Light-headed, Unstable angina Disposition: Admitted As Inpatient Condition: Good Forms: ED Satisfaction Letter Time of Disposition: 22:33 General Adult HPI - General Chief complaint: ED Dizziness Stated complaint: Dizzy Time Seen by Provider: 11/20/18 19:28 Source: patient Mode of arrival: private vehicle Limitations: no limitations - History of Present Illness Pain Scale: 8 - Related Data Home Medications Medication Instructions Recorded Confirmed Aspirin Enteric Coated [Aspirin EC] 81 mg PO DAILY 07/30/16 07/30/16 Citalopram Hydrobromide [Celexa] 40 mg PO DAILY 07/30/16 07/30/16 Finasteride [Proscar] 5 mg PO DAILY 07/30/16 07/30/16 Metformin HCl [Glucophage] 1,000 mg PO BID 07/30/16 07/30/16 Niacin [Slo-Niacin] 1,500 mg PO HS 07/30/16 07/30/16 Pantoprazole Sodium [Protonix] 40 mg PO DAILY 07/30/16 07/30/16 Saxagliptin HCl [Onglyza] 5 mg PO DAILY 07/30/16 07/30/16 Tamsulosin [Flomax] 0.4 mg PO HS 07/30/16 07/30/16 Previous Rx's Medication Instructions Recorded Isosorbide MONOnitrate (24 HR) 30 mg PO DAILY #30 tab.er.24h 07/31/16 [Imdur] Metoprolol XL (24 HR) Succ [Toprol 12.5 mg PO DAILY #30 tab.er.24h 07/31/16 Xl] Allergies Allergy/AdvReac Type Severity Reaction Status Date / Time glyburide AdvReac Nausea Verified 11/20/18 19:25 simvastatin [From Zocor] AdvReac Nausea Verified 11/20/18 19:25 Past Medical History - Past Medical History Medical history: Reports: arthritis, coronary artery disease, diabetes, GERD, hyperlipidemia, myocardial infarction, other Surgical history: Reports: angioplasty/stent Psychiatric history: Reports: anxiety, depression, PTSD - Social History Smoking Status: Former smoker Smokeless Tobacco Status: No Alcohol use: Reports: none Drug use: Reports: none Physical Exam - General Limitations: no limitations General appearance: alert, in no apparent distress Course - Consultations Consultation #1: discussed case with Dr. Coelho and he will accept patine to medicine service. Time: 22:32 Vital Signs Temperature 98.1 F 11/20/18 19:25 Pulse Rate 89 11/20/18 19:25 Respiratory Rate 20 11/20/18 19:25 Blood Pressure 141/76 11/20/18 19:25 O2 Sat by Pulse Oximetry 98 11/20/18 19:25 Temperature 98.1 F 11/20/18 19:32 Pulse Rate 89 11/20/18 19:32 Respiratory Rate 20 11/20/18 19:32 Blood Pressure 141/76 11/20/18 19:32 O2 Sat by Pulse Oximetry 98 11/20/18 19:32 Oxygen Delivery Oxygen Delivery Room Air Medical Decision Making - Lab Data Result diagrams: 11/20/18 19:45 11/20/18 19:45 Lab Results 11/20/18 11/20/18 11/20/18 Range/Units 19:45 19:45 19:45 WBC 6.1 (4.3-11.1) K/mcL RBC 4.48 (4.19-5.50) M/mcL Hgb 13.8 (12.9-16.9) g/dL Hct 40.8 (37.5-50.1) % MCV 91.1 (83.0-100.0) fL MCH 30.8 (28.0-33.3) pg MCHC 33.8 (31.6-35.5) g/dL RDW 12.3 (11.5-14.5) % Plt Count 149 (140-400) K/mcL MPV 10.4 (9.4-12.4) fL Immature Gran % 0.2 (0-4) % Seg Neutrophils % 61.0 % Lymphocytes % 28.8 % Monocytes % 8.5 % Eosinophils % 0.2 % Basophils % 1.3 % Neutrophils # 3.7 (1.6-8.9) K/mcL Lymphocytes # 1.8 (0.6-4.6) K/mcL Monocytes # 0.5 (0.0-1.3) K/mcL Eosinophils # 0.0 (0.0-0.6) K/mcL Basophils # 0.1 (0.0-0.2) K/mcL PT 11.3 (9.4-12.1) Seconds INR 1.0 Sodium 136 (136-145) mEq/L Potassium 4.2 (3.5-5.1) mEq/L Chloride 101 (98-107) mEq/L Carbon Dioxide 26 (23-29) mEq/L BUN 15 (8-23) mg/dL Creatinine 1.03 (0.70-1.30) mg/dL Est GFR ( Amer) > 60 (> 60) Est GFR (Non-Af Amer) > 60 (> 60) BUN/Creatinine Ratio 15 (6-26) Glucose 233 H (70-105) mg/dL Calculated Osmolality 290 (280-300) Calcium 9.5 (8.6-10.3) mg/dL Troponin I < 0.03 (< 0.04) ng/mL Attestation Statement - Attestation Attestation: I reviewed the residents documentation and agree with the residents assessment and plan of care. I have personally had face to face time with the patient. (Brief History, Brief Exam, and MDM) I personally supervised and was present for the miller/critical portions of the following procedures completed by the resident: EKG 68 year old male presents to the ED with complaints of lightheaded feeling during exertion and [facility] and state that it has been worsening. Leanne marion had a stress test that was otherwise abnormal in July while being evlauted here for simlair symptoms and was medicaly managed. He did have his lisinopril recently incresed by his [facility] doctor and this may be contrivuting to his lightheaded nature. Because he appers to be symptomatic we will admit to medicine for further workup including disucssion for cardiac catherization
--- NOTE | 2018-11-20 23:07 | Internal Med History&Physical ---
Date of Encounter: 11/21/18 Time of Encounter: 23:02 Internal Medicine - H&P: HPI Chief complaint: dizziness Admitted From: Home Plans for Post Hospital Care: Home History of present illness: Mr. Eric is a 68 year old male with past medical history of type 2 diabetes, hyperlipidemia, severe CAD status post stenting in 2012 presents to the ED for worsening dizziness and pre-syncope. [id number] encounter at 22:20pm. Patient has been working outside in [place] under the sun and been sweating much. Patient have been drinking at least 10 bottles of water and has been having events were he would have dizziness with nausea and shortness of breath lasting for 30 minutes alleviated with rest, Chest pressure sensation is also intermittently experianced(last stress test 2016 abnormal with no intervention done). Dizziness does not have an exacerbating factor occurs suddenly with no associated events. no associated fever, chills, vomiting, bowel pain or diarrhea or incontinence. Reviewed patient's past medical, surgical, family and social history. CODE STATUS full code. Reviewing the records patient had a str ess test back in July 2016 showed reversible inferior perfusion defect however the patient admitted [facility] or having any intervention done since 2012. Patient recently had a medication change of the venlaflaxacin from 150 mg daily to 300 mg daily occurred 4 days ago called by psychiatrist. Past Med Surg Social Fam HX - Past Medical History Medical history: arthritis, coronary artery disease, diabetes, GERD, hyperlipidemia, myocardial infarction, other Psychiatric history: anxiety, depression, PTSD - Past Surgical History Surgical History: angioplasty/stent Additional surgical history: Stents times 3, bicep repair, mastoidectomy, left ankle/foot - Social History Smoking Status: Former smoker Smokeless Tobacco Status: No Alcohol use: none Drug use: none - Family History Mother Living Status: Hx Family Endocrine Disorder: Yes (DM) Hx Family Neuromuscular Disorders: Yes Father Living Status: Hx Family Cardiac Disorders: Yes (HLD, HTN) Hx Family Neurologic Disorders: Yes (aneurysm) Internal Medicine - H&P: Meds Aspirin Enteric Coated [Aspirin EC] 81 mg PO DAILY 07/30/16 [History] Metformin HCl [Glucophage] 1,000 mg PO BID 07/30/16 [History] Niacin [Slo-Niacin] 1,500 mg PO HS 07/30/16 [History] Metoprolol XL (24 HR) Succ [Toprol Xl] 12.5 mg PO DAILY #30 tab.er.24h 07/31/16 [Rx] Allergy/AdvReac Type Severity Reaction Status Date / Time glyburide AdvReac Nausea Verified 11/20/18 19:25 simvastatin [From Zocor] AdvReac Nausea Verified 11/20/18 19:25 All Systems PM: A 10-system review of systems was performed and is negative for pertinent findings except as documented above in the HPI. Review of systems: General: No unintentional weightloss, No fever Head: No headahce, No injury. Ears: No discharge, No earache Eyes: No drainage, No eye pain Mouth and Throat: No new ulcers, No pain Nose and Sinus: No new congestion, No pain, Respiratory: No cough, No sputum production, No dyspnea Cardiovascular: No chest pain, No palpitations. Gastrointestinal: No nausea, No vomiting. No abdominal pain. Genital Tract: No discharge, No pain Urinary Tract: No dysuria, No discharge. MSK: No new/worsening joint pain, No new/worsening muscle ache. Endocrine: No cold intolerance, No polyuria Psychological: No suicidal, No homocidal ideation. - Constitutional Vitals: Temp Pulse Resp BP Pulse Ox 98.1 F 74 14 128/69 99 11/20/18 19:32 11/20/18 22:27 11/20/18 22:27 11/20/18 22:27 11/20/18 22:27 Exam: General Appearance: Appearing as age, well-nourished in minimal acute distress. Head: Atraumatic normocephalic Skin: Normal texture, normal turgor, warm, dry. Eyes: Conjunctivae not pale with no erythema, drainage, or ulcers. Anicteric. Neck: No Lymphadenopathy in the anterior/posterior cervical chain. No thyromegaly, masses or ulcers. Trachea midline. Heart: RRR, no murmurs. Capillary refill 3 seconds Lungs: No accessory muscle usage, lungs clear to auscultation bilaterally, no wheezes or crackles. Extremities: No pitting edema, No clubbing, No cyanosis. Abdomen: Non-distended, normoactive bowel sounds. non-tender to palpation, no hepatomegally. No guarding. Neuro: AOx3 with no new sensory loss or focal deficits. NIHSS 0 MSK: Strength 5/5 Upper extremity equal bilaterally. Strength 5/5 Lower extremity equal bilaterally Internal Med - H&P Results - Labs CBC & Chem 7: 11/20/18 19:45 11/20/18 19:45 Labs: Short CBC 11/20/18 Range/Units 19:45 WBC 6.1 (4.3-11.1) K/mcL Hgb 13.8 (12.9-16.9) g/dL Hct 40.8 (37.5-50.1) % Plt Count 149 (140-400) K/mcL Neutrophils # 3.7 (1.6-8.9) K/mcL BMP 11/20/18 19:45 Sodium 136 Potassium 4.2 Chloride 101 Carbon Dioxide 26 BUN 15 Creatinine 1.03 Glucose 233 H Calcium 9.5 Cardiac Enzymes 11/20/18 Range/Units 19:45 Troponin I < 0.03 (< 0.04) ng/mL - Impressions ITS Impressions Head CT 11/20/18 21:29 IMPRESSION: No acute intracranial abnormality. Status post previous left mastoidectomy. D/ /20/2018 21:38:11 Khris Rosen MD / [email or web address] Interpreting Provider: Khris Rosen MD - Summary of Assessment and Plan Summary of Assessment and Plan: Presyncope: Likely common etiologies heat exhaustion, orthostatics. Suspected cardiac cause due to chest pressure that is intermittent. EKG reviewed, troponin negative 2. Echocardiogram, orthostatics BP, ultrasound carotid pending. Chest pressure: ASA given in the ED. Heart score 4. Tele, trp, ekg. Nuclear stress test pending NPO past midnight. Hyperglycemia uncontrolled type 2 diabetes, Hold metformin, continue insulin sliding scale Chronic medical disease, Hyperlipidemia: Allergies to simvastatin continue niacin CAD: Metoprolol XL 12.5 mg daily. Patient would benefit with adding low dose A CE inhibitor. DVT prophylaxis: Heparin Disposition: Likely less than 2 day stay - Time Spent With Patient Total time spent is greater than 39 minutes 50% in coordination of care (as documented) at patient's floor/unit and/or counseling patient: Greater than 35 minutes
[2018-11-20] MEDS ORDERED: Naloxone 0.4 MG/ML INJ IVP PRN (23:09)
[2018-11-20] MEDS ORDERED: Ondansetron ODT 4 MG TAB.RAPDIS SL PRN (23:09)
[2018-11-20] MEDS ORDERED: Nitroglycerin 0.4 MG TAB.SUBL SL PRN (23:09)
[2018-11-20] MEDS ORDERED: Ringers Solution, Lactated 1,000 ML IVC SCH (23:15)
[2018-11-20 23:53] LABS: Amphetamine Screen,Urine Negative ng/mL (Cutoff=1000); Barbiturate Screen,Urine Negative ng/mL (Cutoff=200); Benzodiazepines Screen,Urine Negative ng/mL (Cutoff=200); Cannabinoid Screen,Urine Negative ng/mL (Cutoff = 50); Cocaine Screen,Urine Negative ng/mL (Cutoff= 300); Opiate Screen,Urine Negative ng/mL (Cutoff=300); Phencyclidine Screen,Urine Negative ng/mL (Cutoff=25)
[2018-11-20 23:55] LABS: Bilirubin,Urine Negative (Negative); Blood,Urine Negative (Negative); Clarity,Urine Clear (Clear); Color,Urine Yellow (Yellow); Glucose,Urine (UA) >=1000 mg/dL (Normal); Ketones,Urine Negative (Negative); Leukocyte Esterase,Urine Negative (Negative); Nitrite,Urine Negative (Negative); Protein,Urine Negative (Neg-Trace); Specific Gravity,Urine 1.023 (1.010-1.025); Urobilinogen,Urine Normal (Normal)
[2018-11-21 05:25] LABS: Basophils % 0.8 %; Hematocrit 40.2 % (37.5-50.1); Hemoglobin 13.6 g/dL (12.9-16.9); Immature Granulocytes % 0.2 % (0-4); Lymphocytes # 1.9 K/mcL (0.6-4.6); Lymphocytes % 36.3 %; Mean Corpuscular HGB Conc 33.8 g/dL (31.6-35.5); Mean Corpuscular Hemoglobin 31.1 pg (28.0-33.3); Mean Platelet Volume 9.7 fL (9.4-12.4); Monocytes # 0.4 K/mcL (0.0-1.3); Neutrophils # 2.9 K/mcL (1.6-8.9); Platelet Count 124 K/mcL (140-400); Red Blood Count 4.37 M/mcL (4.19-5.50); Red Cell Distribution Width 12.3 % (11.5-14.5); Segmented Neutrophils % 55.7 %; White Blood Count 5.1 K/mcL (4.3-11.1)
[2018-11-21 05:32] LABS: Prothrombin Time 11.5 Seconds (9.4-12.1)
[2018-11-21 05:50] LABS: BUN/Creatinine Ratio 15 (6-26); Blood Urea Nitrogen 15 mg/dL (8-23); Calcium 9.2 mg/dL (8.6-10.3); Carbon Dioxide 28 mEq/L (23-29); Chloride 104 mEq/L (98-107); Chol/HDL Ratio 3.5 (0-4.9); Cholesterol 188 mg/dL (< 200); Glucose 231 mg/dL (70-105); HDL Cholesterol 54 mg/dL (40-59); LDL Cholesterol,Calculated 116 mg/dL (0-99); Magnesium 1.8 mg/dL (1.6-2.6); Osmolality,Calculated 290 (280-300); Phosphorous 4.1 mg/dL (2.7-4.5); Potassium 4.3 mEq/L (3.5-5.1); Sodium 136 mEq/L (136-145); Triglycerides 91 mg/dL (< 150); eGFR For African Americans > 60 (> 60); eGFR For Non-African Americans > 60 (> 60)
[2018-11-21] MEDS ORDERED: Regadenoson 0.4 MG/5 ML SYRINGE IVP ONE (07:43)
[2018-11-21] MEDS ORDERED: Aspirin 81 MG TAB.CHEW PO SCH (09:00)
[2018-11-21] MEDS ORDERED: Metoprolol XL (24 HR) Succ 25 MG TAB.ER.24H PO SCH (09:00)
--- NOTE | 2018-11-21 10:48 | Internal Med Progress Note ---
Hospitalist Progress Note - Encounter Date of Encounter: 11/21/18 Time of Encounter: 10:46 - Subjective Interval History: Mr. Eric is a 68 year old male with past medical history of type 2 diabetes, hyperlipidemia, severe CAD status post stenting in 2012 presents to the ED for worsening dizziness and pre-syncope. Engt-fm-toti encounter at 22:20pm. Patient has been working outside in [employer] under the sun and been sweating much. Patient have been drinking at least 10 bottles of water and has been having events were he would have dizziness with nausea and shortness of breath lasting for 30 minutes alleviated with rest, Chest pressure sensation is also intermittently experianced(last stress test 2016 abnormal with no intervention done). Dizziness does not have an exacerbating factor occurs suddenly with no associated events. no associated fever, chills, vomiting, bowel pain or diarrhea or incontinence. Reviewed patient's past medical, surgical, family and social history. CODE STATUS full code. Reviewing the records patient had a stress test back in July 2016 showed reversible inferior perfusion defect however the patient [facility] or having any intervention done since 2012. Patient recently had a medication change of the venlaflaxacin from 150 mg daily to 300 mg daily occurred 4 days ago called by psychiatrist. Pt seen and examined in the room. He has no dizziness since admission. - Exam Vitals: Temp Pulse Resp BP Pulse Ox 97.7 F 60 15 137/82 98 11/21/18 10:12 11/21/18 10:12 11/21/18 10:12 11/21/18 10:12 11/21/18 10:12 Exam: General Appearance: Appearing as age, well-nourished in minimal acute distress. Head: Atraumatic normocephalic Skin: Normal texture, normal turgor, warm, dry. Eyes: Conjunctivae not pale with no erythema, drainage, or ulcers. Anicteric. Neck: No Lymphadenopathy in the anterior/posterior cervical chain. No thyromegaly, masses or ulcers. Trachea midline. Heart: RRR, no murmurs. Capillary refill 3 seconds Lungs: No accessory muscle usage, lungs clear to auscultation bilaterally, no wheezes or crackles. Extremities: No pitting edema, No clubbing, No cyanosis. Abdomen: Non-distended, normoactive bowel sounds. non-tender to palpation, no hepatomegally. No guarding. Neuro: AOx3 with no new sensory loss or focal deficits. NIHSS 0 MSK: Strength 5/5 Upper extremity equal bilaterally. Strength 5/5 Lower extremity equal bilaterally - Assessment and Plan (1) CAD (coronary artery disease) Current Visit: No Status: Chronic Assessment and Plan: Stable, continue home meds. (2) Diabetes mellitus Current Visit: No Status: Chronic Assessment and Plan: not well controlled, pending a1c, continue ISS. Will adjust meds based on a1c result. consider adding SGLT-2 and DLP-1 given its CV benefits. (3) Thrombocytopenia Current Visit: No Status: Chronic Assessment and Plan: stable, continue monitoring. (4) HLD (hyperlipidemia) Current Visit: No Status: Chronic Assessment and Plan: resume home meds. Lipid panel LDL 116, HDL 54. consider add fish oil and zetia. (5) Light-headed Current Visit: Yes Status: Acute Assessment and Plan: Urine drug screen was negative. Orhtostatic BP was normal. Labs did not showed dehydration. Recent carotid doppler complated at CT was reportedly insignificant per family. Pending stress test and ECHO. Tele overnight no arrhythmia. - Time Spent with Patient Total time spent is greater than 50% in coordination of care (as documented) at patient's floor/unit and/or counseling patient: Greater than 35 minutes Plan of Care Discussed with: patient Internal Medicine: Result - Labs CBC & Chem 7: 11/21/18 05:12 11/21/18 05:12 Labs: Short CBC 11/20/18 11/21/18 Range/Units 19:45 05:12 WBC 6.1 5.1 (4.3-11.1) K/mcL Hgb 13.8 13.6 (12.9-16.9) g/dL Hct 40.8 40.2 (37.5-50.1) % Plt Count 149 124 L (140-400) K/mcL Neutrophils # 3.7 2.9 (1.6-8.9) K/mcL BMP 11/20/18 11/21/18 19:45 05:12 Sodium 136 136 Potassium 4.2 4.3 Chloride 101 104 Carbon Dioxide 26 28 BUN 15 15 Creatinine 1.03 0.97 Glucose 233 H 231 H Calcium 9.5 9.2 Cardiac Enzymes 11/20/18 11/20/18 11/21/18 Range/Units 19:45 23:59 05:12 Troponin I < 0.03 < 0.03 < 0.03 (< 0.04) ng/mL Urine 11/20/18 Range/Units 23:25 Urine Color Yellow (Yellow) Urine Clarity Clear (Clear) Urine pH 7.0 (5.0-8.0) pH Units Ur Specific R[place] 1.023 (1.010-1.025) Urine Protein Negative (Neg-Trace) mg/dL Urine Glucose (UA) >=1000 H (Normal) mg/dL - ABG Interpretation ABG results: PT/INR, D-dimer PT 11.5 Seconds (9.4-12.1) 11/21/18 05:12 - Impressions Impressions Head CT 11/20/18 21:29 IMPRESSION: No acute intracranial abnormality. Status post previous left mastoidectomy. D/ /20/2018 21:38:11 Khris Rosen MD / ashely Interpreting Provider: Khris Rosen MD Consult Discharge Plan - Plan [facility]errals: [facility] [Primary Care Provider] - (1) CAD (coronary artery disease) Qualifiers: Coronary Disease-Associated Artery/Lesion type: [place] artery [place] vs. transplanted heart: [place] heart Associated angina: with stable angina Qualifi ed Code(s): I25.118 - Atherosclerotic heart disease of [place] coronary artery with other forms of angina pectoris (2) Diabetes mellitus Qualifiers: Diabetes mellitus type: type 2 Diabetes mellitus [facility] insulin use: without intermission coordinator use Diabetes mellitus complication status: without complication Qualified Code(s): E11.9 - Type 2 diabetes mellitus without complications (4) HLD (hyperlipidemia) Qualifiers: Hyperlipidemia type: unspecified Qualified Code(s): E78.5 - Hyperlipidemia, unspecified
[2018-11-21] MEDS ORDERED: Acetaminophen 325 MG TABLET PO PRN (12:19)
[2018-11-21] MEDS ORDERED: Loratadine 10 MG TABLET PO PRN (16:39)
[2018-11-21] MEDS ORDERED: D5% in Water 1,000 ML IVC PRN (17:08)
[2018-11-21] MEDS ORDERED: Dextrose Gel 15 GM/37.5 ML TUBE PO PRN ×2 (17:08)
[2018-11-21] MEDS ORDERED: *HR* Dextrose 50 % in Water (Syg) 50 ML SYRINGE IVP PRN (17:08)
[2018-11-21] MEDS ORDERED: Insulin LISPRO 300 UNITS/3 ML VIAL SQ SCH (21:00)
[2018-11-21] MEDS ORDERED: Niacin (24 HR) 500 MG TAB.ER.24H PO SCH (21:00)
[2018-11-22] MEDS ORDERED: Venlafaxine XR (24 HR) 150 MG CAP.ER.24H PO SCH (09:00)
[2018-11-22] MEDS ORDERED: Aspirin Enteric Coated 81 MG Tablet PO SCH (09:00)
[2018-11-22] MEDS: Insulin LISPRO 300 UNITS/3 ML VIAL SQ SCH ×2 (09:00→11:59)
[2018-11-22 09:28] LABS: Estimated Average Glucose 180 mg/dl
[2018-11-22] MEDS ORDERED: Metoprolol XL (24 HR) Succ 25 MG TAB.ER.24H PO SCH (10:07)
[2018-11-22 11:47] VITALS: BP 128/72
--- NOTE | 2018-11-22 11:52 | Cardiology Consult Note ---
<Fide Romero - Last Filed: 11/22/18 12:10> Date of Encounter: 11/22/18 Time of Encounter: 09:30 Assessment and Plan (1) Dizziness Status: Acute Per cardiology: -Admitted with dizziness. Now resolved. -ECG with SR. -TTE with LVEF preserved, no SWMA -Stress test with prior infarct, no ischemia. -No significant arrythmias noted on telemetry. -Orthostatic BPs negative. -Discussed with , can consider tilt test in outpatient setting. -Anticipate cardiology sign off, once seen and evaluated by . (2) CAD (coronary artery disease) Status: Chronic Per cardiology: -Known CAD s/p [place], PCI. Reports las [facility] around 2014 with PCI at [facility]. -On asa, statin. -Denies chest or arm pain (which is previous angina). -Stress test with prior infarct noted, no ischemia. -TTE with LVEF preserved, no SWMA. -Troponins negative x4. -Will resume BB. Qualifiers: Coronary Disease-Associated Artery/Lesion type: [place] artery [place] vs. transplanted heart: [place] heart Associated angina: without angina Qualified Code(s): I25.10 - Atherosclerotic heart disease of [place] coronary artery without angina pectoris Discussion w patient/family: The assessment and plan as outlined above was discussed with the patient who expressed understanding and agreement. All questions were answered. Thank you for involving us in the care of your patient. Please call with any questions. Discussed and reviewed with . History of Present Illness Consult date: 11/21/18 Requesting physician: Virginia Angel Consult reason: abnormal stress test Chief complaint: dizziness History of present illness: Mr. Eric is a 68 year old male with a relevant past medical history of MN, CAD s/p PCI, DM, HLD, GERD, anxiety, depression, PTSD, who presented to [facility] with complaints of dizziness. Patient states symptoms started on Thursday while sitting, eating dinner. Patient reports symptoms lasted for about 30 minutes and resolved spontaneously. Patient reports he has been having intermittent dizziness for a few months. States previous symptoms correlated to working outside in the heat. Patient denies chest pain. Denies shortness of breath or fatigue. States he is able to work on his cars and do yard work without chest p ain. Patient reports previous anginal symptoms were chest pain and bilateral arm pain, which he denies. Past Med Surg Social Fam HX - Past Medical History Attestation: Yes The following information was validated with the patient. Source: patient, old records reviewed Medical history: arthritis, coronary artery disease, diabetes, GERD, hyperlipidemia, myocardial infarction, other Psychiatric history: anxiety, depression, PTSD - Past Surgical History Surgical History: angioplasty/stent Additional surgical history: Stents times 3, bicep repair, mastoidectomy, left ankle/foot - Social History Smoking Status: Former smoker Smokeless Tobacco Status: No Alcohol use: none Drug use: none - Family History Mother Living Status: Hx Family Endocrine Disorder: Yes (DM) Hx Family Neuromuscular Disorders: Yes Father Living Status: Hx Family Cardiac Disorders: Yes (HLD, HTN) Hx Family Neurologic Disorders: Yes (aneurysm) Medications and Allergies Aspirin Enteric Coated [Aspirin EC] 81 mg PO DAILY 07/30/16 [History] Metformin HCl [Glucophage] 1,000 mg PO BID 07/30/16 [History] Niacin [Slo-Niacin] 1,500 mg PO HS 07/30/16 [History] Lisinopril [Zestril] 5 mg PO DAILY 11/21/18 [History] Loratadine [Claritin] 10 mg PO DAILY PRN 11/21/18 [History] Pantoprazole Sodium [Protonix] 40 mg PO DAILY 11/21/18 [History] Atorvastatin [Lipitor] 80 mg PO HS #30 tablet 11/22/18 [Rx] Metoprolol XL (24 HR) Succ [Toprol Xl] 12.5 mg PO DAILY #30 tab.er.24h 11/22/18 [Rx] Allergy/AdvReac Type Severity Reaction Status Date / Time glyburide AdvReac Nausea Verified 11/21/18 10:29 simvastatin [From Zocor] AdvReac Nausea Verified 11/21/18 10:29 All Systems Review: The remainder of the systems were reviewed and are negative - Cardiovascular Cardiovascular: as per HPI - Neurological Neurological: dizziness Physical Examination Vital Signs, Last 4 Hours Temp Pulse Resp BP Pulse Ox 11/22/18 11:46 98.0 F 63 15 128/72 98 General: Conversant, No Apparent Distress HEENT: Atraumatic, Normocephaly, Mucus Membranes Moist Neck: No JVD, Normal carotid pulses Cardiac: Reg Rate and Rhythm, Normal S1 and S2, No Murmur Lungs: Normal Breath Sounds, No Wheeze, Rales, Rhonchi Neuro: Alert and responsive, No focal deficits noted Abdomen: Soft, Non-Tender Skin: No rashes noted on visualized skin Musculoskeletal: No Chest Wall Tenderness Extremities: No Clubbing, No Cyanosis, No Edema, Normal Pulses Results 11/21/18 05:12 11/21/18 05:12 Impressions Echocardiogram 11/21/18 09:06 Impressions: LVEF 60-65%. Normal LV chamber size, wall thickness and function. Mild left ventricular diastolic dysfunction. Normal right ventricular structure and function. No evidence of pulmonary hypertension. No significant valvular dysfunction. Left Ventricular Wall Motion: Rest Echo Findings All wall segments showed normal motion. Findings: Study Quality * Technically adequate exam. ECG Findings * Normal sinus rhythm. Left Ventricle * LVEF 60-65%. * Normal LV chamber size, wall thickness and function. * Mild left ventricular diastolic dysfunction. Right Ventricle * Normal right ventricular structure and function. Left Atrium * Normal left atrial size. Right Atrium * Normal right atrial size. Interatrial Septum * Interatrial septum not well evaluated. Aortic Valve * Trileaflet aortic valve with normal function. * No aortic regurgitation. * No aortic stenosis. Mitral Valve * Normal mitral valve structure and function. * No mitral regurgitation. * No mitral stenosis. Tricuspid Valve * Normal tricuspid valve structure and function. * Trace tricuspid regurgitation. * No evidence of pulmonary hypertension. Pulmonic Valve * Normal pulmonic valve structure and function. * No pulmonic regurgitation. Aorta * Normally sized aortic root. Pericardium * There is a trivial pericardial effusion present. IVC * Normal IVC dimensions and inspiratory collapse. Pulmonary Artery * Normal visualized portions of the main pulmonary artery. Active Medications Acetaminophen (Tylenol) 650 mg PO Q6HR PRN PRN Reason: Pain Stop: 05/23/19 12:20 Last Admin: 11/22/18 10:58 Dose: 650 mg Documented by: Aspirin (Aspirin Ec) 81 mg PO DAILY [facility] Stop: 05/24/19 09:01 Last Admin: 11/22/18 08:58 Dose: 81 mg Documented by: Atorvastatin Calcium (Lipitor) 80 mg PO HS JANNIE Stop: 05/23/19 21:01 Last Admin: 11/21/18 20:23 Dose: Not Given Documented by: Dextrose/Water (Dextrose 50% (Syg)) 25 ml IVP AD PRN PRN Reason: Hypoglycemia Stop: 05/23/19 17:09 Glucagon (Glucagen) 1 mg IM ONCE PRN PRN Reason: Hypoglycemia Stop: 05/23/19 17:09 Glucose (Gluctose) 15 gm PO ONCE PRN PRN Reason: Hypoglycemia Stop: 05/23/19 17:09 Glucose (Gluctose) 30 gm PO ONCE PRN PRN Reason: Hypoglycemia Stop: 05/23/19 17:09 Dextrose (Dextrose 5%) 1,000 mls @ 100 mls/hr IVC .Q10H PRN PRN Reason: HYPOGLYCEMIA Stop: 05/23/19 17:09 Insulin Human Lispro (Humalog) 0 units SQ HS [facility]; Protocol Stop: 05/23/19 21:01 Last Admin: 11/21/18 20:23 Dose: 2 units Documented by: Insulin Human Lispro (Humalog) 0 units SQ TIDAC [facility]; Protocol Stop: 05/24/19 07:31 Last Admin: 11/22/18 11:59 Dose: Not Given Documented by: Lisinopril (Zestril) 5 mg PO DAILY [facility]; Protocol Stop: 05/24/19 09:01 Last Admin: 11/22/18 08:58 Dose: 5 mg Documented by: Loratadine (Claritin) 10 mg PO DAILY PRN PRN Reason: Allergy Symptoms Metoprolol Succinate (Toprol Xl) 12.5 mg PO DAILY [facility] Stop: 05/24/19 10:08 Last Admin: 11/22/18 10:57 Dose: 12.5 mg Documented by: Naloxone HCl (Narcan) 0.4 mg IVP Q2MPRN PRN PRN Reason: SEE COMMENTS Stop: 05/22/19 23:10 Niacin (Niaspan) 1,500 mg PO HS [facility] Stop: 05/23/19 21:01 Last Admin: 11/21/18 20:22 Dose: 1,500 mg Documented by: Nitroglycerin (Nitroglycerin) 0.4 mg SL Q5MPRN PRN PRN Reason: Chest Pain Stop: 05/22/19 23:10 Omeprazole (Prilosec) 20 mg PO DAILY@0730 [facility] Stop: 05/24/19 07:31 Last Admin: 11/22/18 08:59 Dose: 20 mg Documented by: Ondansetron HCl (Zofran Odt) 4 mg SL Q8HR PRN PRN Reason: Nausea And Vomiting Stop: 05/22/19 23:10 Venlafaxine HCl (Effexor Xr) 150 mg PO DAILY JANNIE Stop: 05/24/19 09:01 Last Admin: 11/22/18 08:57 Dose: Not Given Documented by: Laboratory Tests 11/20/18 11/20/18 11/21/18 19:45 23:59 05:12 Hgb 13.6 Creatinine Troponin I < 0.03 < 0.03 11/21/18 11/21/18 11/21/18 05:12 05:12 11:13 Hgb Creatinine 0.97 Troponin I < 0.03 < 0.03 - Imaging and Cardiology Chest Xray: report reviewed Stress Test: report reviewed Echo: report reviewed - EKG Interpretation EKG results cardiology: personally reviewed (ECG with SR, HR 72.), other (Teleme try reviewed with average HR previous 12 hours noted to be 71, SR. PVCs, PACs noted.) Consult Discharge Plan - Plan Instructions: Metoprolol (By mouth), Atorvastatin (By mouth) [facility]errals: [facility] [Primary Care Provider] - (Please make a hospital follow up for 1 week. f/u with psychiatry at OR within a week. f/u with PCP within a week. f/u with cardiology within a month.) Prescriptions: Atorvastatin [Lipitor] 80 mg PO HS #30 tablet Prescription Printed Metoprolol XL (24 HR) Succ [Toprol Xl] 12.5 mg PO DAILY #30 tab.er.24h Prescription Printed <Harry García A - Last Filed: 11/22/18 21:20> Date of Encounter: 11/22/18 - Attending Attestation I have personally performed a face to face evaluation on this patient. I have reviewed and agree with the documented findings and care plan as documented by the MARKER MAKER. History and Exam by me shows: Patient with dizziness, and stress test showed no ischemia. Encourage adequate hydration. Recommend tilt table test as outpatient Thanks for the consult, please call with questions. Harry García MD FAC Assessment and Plan Discussion w patient/family: The assessment and plan as outlined above was discussed with the patient and/or family members who expressed understanding and agreement. All questions were answered. Thank you for involving us in the care of your patient. Please call with any questions. History of Present Illness History of present illness: Mr. Eric is a 68 year old male All Systems Review: The remainder of the systems were reviewed and are negative Results 11/21/18 05:12 11/21/18 05:12
--- NOTE | 2018-11-22 12:26 | Discharge Summary ---
- NOTES TO OUTPATIENT PROVIDER Notes to Outpatient Provider: f/u with psychiatry at [facility] within a week. f/u with PCP within a week. f/u with cardiology within a month. Date of Encounter: 11/22/18 Time of Encounter: 12:55 - Discharge Diagnosis (1) CAD (coronary artery disease) Priority: Secondary Status: Chronic Qualifiers: Coronary Disease-Associated Artery/Lesion type: [place] artery [place] vs. transplanted heart: [place] heart Associated angina: without angina Qualified Code(s): I25.10 - Atherosclerotic heart disease of [place] coronary artery without angina pectoris (2) Diabetes mellitus Priority: Secondary Status: Chronic Qualifiers: Diabetes mellitus type: type 2 Diabetes mellitus correction insulin use: without correction use Diabetes mellitus complication status: without complication Qualified Code(s): E11.9 - Type 2 diabetes mellitus without complications (3) Thrombocytopenia Priority: Secondary Status: Chronic (4) HLD (hyperlipidemia) Priority: Secondary Status: Chronic Qualifiers: Hyperlipidemia type: unspecified Qualified Code(s): E78.5 - Hyperlipidemia, unspecified (5) Light-headed Priority: Primary Status: Acute Hospital course: Mr. Eric is a 68 year old male with past medical history of type 2 diabetes, hyperlipidemia, severe CAD status post stenting in 2012 presents to the ED for worsening dizziness and pre-syncope. [id number] encounter at 22:20pm. Patient has been working outside in [employer] under the sun and been sweating much. Patient have been drinking at least 10 bottles of water and has been having events were he would have dizziness with nausea and shortness of breath lasting for 30 minutes alleviated with rest, Chest pressure sensation is also intermittently experianced(last stress test 2016 abnormal with no intervention done). Dizziness does not have an exacerbating factor occurs suddenly with no associated events. no associated fever, chills, vomiting, bowel pain or diarrhea or incontinence. Reviewed patient's past medical, surgical, family and social history. CODE STATUS full code. Reviewing the records patient had a stress test back in July 2016 showed reversible inferior perfusion defect however the patient admitted to not following up with [facility] or having any intervention done since 2012. Patient recently had a medication change of the venlaflaxacin from 150 mg daily to 300 mg daily occurred 4 days ago called by psychiatrist. Further workup showed normal orthostatic BP, serial troponin was negative, EKG showed normal sinus rhythm without st-t changes. ECHO showed LVEF 60-65%. Normal LV chamber size, wall thickness and function, mild left ventricular diastolic dysfunction, normal right ventricular structure and function, no evidence of pulmonary hypertension, no significant valvular dysfunction. Stress test Discharge discussed with: patient Time spent discussing smoking cessation with patient: more than 10 minutes - Time Spent with Patient Total time spent providing and/or coordinating discharge services: Time spent: Greater than 30 minutes - Discharge Medications Prescriptions: New Atorvastatin [Lipitor] 80 mg PO HS #30 tablet Metoprolol XL (24 HR) Succ [Toprol Xl] 12.5 mg PO DAILY #30 tab.er.24h Continued Aspirin Enteric Coated [Aspirin EC] 81 mg PO DAILY Niacin [Slo-Niacin] 1,500 mg PO HS Metformin HCl [Glucophage] 1,000 mg PO BID Lisinopril [Zestril] 5 mg PO DAILY Pantoprazole Sodium [Protonix] 40 mg PO DAILY Loratadine [Claritin] 10 mg PO DAILY PRN PRN Reason: Allergy Symptoms Discontinued Venlafaxine HCl [Venlafaxine HCl ER] 150 mg PO DAILY Home Medications: Aspirin Enteric Coated [Aspirin EC] 81 mg PO DAILY 07/30/16 [History] Metformin HCl [Glucophage] 1,000 mg PO BID 07/30/16 [History] Niacin [Slo-Niacin] 1,500 mg PO HS 07/30/16 [History] Lisinopril [Zestril] 5 mg PO DAILY 11/21/18 [History] Loratadine [Claritin] 10 mg PO DAILY PRN 11/21/18 [History] Pantoprazole Sodium [Protonix] 40 mg PO DAILY 11/21/18 [History] Atorvastatin [Lipitor] 80 mg PO HS #30 tablet 11/22/18 [Rx] Metoprolol XL (24 HR) Succ [Toprol Xl] 12.5 mg PO DAILY #30 tab.er.24h 11/22/18 [Rx] Allergies/Adverse Reactions: Allergy/AdvReac Type Severity Reaction Status Date / Time glyburide AdvReac Nausea Verified 11/21/18 10:29 simvastatin [From Zocor] AdvReac Nausea Verified 11/21/18 10:29 Date of admission: 11/20/18 22:35 [facility] care physician: [facility] Consults: 11/21/18 16:22 Consult to Cardiology [CONS] Routine Comment: Consulting Provider: Cardiology [place] Reason for Consult: abnormal stress test Call Completed: Yes Anticipated date of discharge: 11/22/18 - Constitutional Vitals: Temp Pulse Resp BP Pulse Ox 98.0 F 63 15 128/72 98 11/22/18 11:46 11/22/18 11:46 11/22/18 11:46 11/22/18 11:46 11/22/18 11:46 General appearance: Present: A&O X 3 Exam: General Appearance: Appearing as age, well-nourished in minimal acute distress. Head: Atraumatic normocephalic Skin: Normal texture, normal turgor, warm, dry. Eyes: Conjunctivae not pale with no erythema, drainage, or ulcers. Anicteric. Neck: No Lymphadenopathy in the anterior/posterior cervical chain. No thyrom egaly, masses or ulcers. Trachea midline. Heart: RRR, no murmurs. Capillary refill 3 seconds Lungs: No accessory muscle usage, lungs clear to auscultation bilaterally, no wheezes or crackles. Extremities: No pitting edema, No clubbing, No cyanosis. Abdomen: Non-distended, normoactive bowel sounds. non-tender to palpation, no hepatomegally. No guarding. Neuro: AOx3 with no new sensory loss or focal deficits. NIHSS 0 MSK: Strength 5/5 Upper extremity equal bilaterally. Strength 5/5 Lower extremity equal bilaterally - Patient Status Disposition: Home, Self-Care Condition: Good Functional capacity at discharge: independent ambulation Overall status at discharge: patient is progressing back to baseline - Discharge Instructions Follow Up With: [facility] [Primary Care Provider] - - Diet and Activity Activity: increase activity as tolerated Diet: diabetic diet, low fat, low cholesterol, low salt diet
--- NOTE | 2018-11-22 18:28 | Electrocardiograph Report ---
[address] [address] Test Date: 2018-11-20 Pat Name: Sarbjit Eric Department: [id number] Room: 3B48 Gender: Application Consultant: : [id number] Requested By: Tonya Robles Order Number: [id number] Reading MD: Harry García Measurements Intervals [place] Rate: 72 P: 38 IN: 167 QRS: 46 QRSD: 95 T: 62 QT: 372 QTc: 408 Interpretive Statements Sinus rhythm Electronically Signed On 11-22-2018 16:24:54 EDT by Harry García
== END 2018-11-22 13:53 | disposition home or self-care (01) ==
LOC: 3BNU 19:23 → EMEROOARM 19:23 → 3BNU 23:25
PROVIDERS: ADMIT Internal Medicine; ATTEND Internal Medicine